=== PATIENT | female | born 1980 | race Caucasian/White ===

== ENCOUNTER 2017-10-25 10:05 | Emergency (ER) | payer MEDICAID, OTHER ==
[~2017-10-25] VITALS: Ht 167.6 cm; Wt 90.0 kg
[~2017-10-25 10:05] MED LIST: AMPH1TAB47 PO; BETA0.0554 TOPICAL; DEPO150I IM; FLUO40CA PO; FLUT1SPR5 EACH NARE; IBUP1TAB7 PO; OMEP20CA2 PO; TEMA15CA PO; XANA1TAB2 PO; [UNRECOGNIZED DRUG - CODE]
[2017-10-25 10:10] VITALS: BP 139/80; PULSE 77; RESP 16; TEMP 98.5; O2SAT 100
[2017-10-25] MEDS ORDERED: ADDE10 PO (10:33)
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
[2017-10-25] MEDS ORDERED: MEDR4PAK PO (11:29)
== END 2017-10-25 11:36 | disposition home or self-care (01) ==
LOC: PHED 10:05 → PHEFT 11:36
DX: J02.8 Acute pharyngitis due to other specified organisms (principal); B97.89 Other viral agents as the cause of diseases classified elsewhere; F32.9 Major depressive disorder, single episode, unspecified; F41.9 Anxiety disorder, unspecified; M19.90 Unspecified osteoarthritis, unspecified site; F17.210 Nicotine dependence, cigarettes, uncomplicated; Z86.19 Personal history of other infectious and parasitic diseases; Z79.899 Other long term (current) drug therapy
CPT/HCPCS: 87081; 87804; 87880; 99283